=== PATIENT | male | born 1955 | race Caucasian/White ===

== ENCOUNTER → 2021-02-13 | Outpatient (CLI) | payer BC, OTHER | LOC: KOH-I 13:50 | DX: Z87.891 Personal history of nicotine dependence (principal); R91.1 Solitary pulmonary nodule | CPT/HCPCS: 71271 ==

== ENCOUNTER → 2021-04-25 | Outpatient (CLI) | payer BC | LOC: RAD 17:19 | DX: M25.512 Pain in left shoulder (principal); M19.012 Primary osteoarthritis, left shoulder | CPT/HCPCS: 73030 ==

== ENCOUNTER → 2021-10-14 | Outpatient (CLI) | payer BC | LOC: KOH-I 14:43 | DX: M54.16 Radiculopathy, lumbar region (principal); M50.30 Other cervical disc degeneration, unspecified cervical region | CPT/HCPCS: 72125 ==

== ENCOUNTER → 2021-12-22 | Outpatient (CLI) | payer BC | LOC: KOH-I 13:03 | DX: M16.0 Bilateral primary osteoarthritis of hip (principal); M46.1 Sacroiliitis, not elsewhere classified; Z68.30 Body mass index [BMI] 30.0-30.9, adult | CPT/HCPCS: 72170 ==